=== PATIENT | male | born 1955 | race Caucasian/White ===

== ENCOUNTER 2019-09-08 08:44 | Outpatient (CLI) | payer MEDICARE, OTHER, SELFPAY ==
--- NOTE | 2019-09-08 09:15 | ECG_ITS ---
Measurements Intervals [place] Rate: 93 P: 87 MI: 135 QRS: 83 QRSD: 90 T: 84 QT: 331 QTc: 413 Interpretive Statements SINUS RHYTHM DELAYED PRECORDIAL R/S TRANSITION BASELINE ARTIFACT- I, II, III BORDERLINE ECG Electronically Signed On 09-08-2019 11:23:03 CDT by Yared Carrasquillo D.O.
== END 2019-09-08 08:45 | disposition home or self-care (01) ==
PROVIDERS: PCP Internal Medicine; Visit Provider Internal Medicine
DX: R06.00 Dyspnea, unspecified (principal); J44.9 Chronic obstructive pulmonary disease, unspecified
CPT/HCPCS: 93005; 94060; 94726; 94729

== ENCOUNTER 2019-09-10 07:49 | Outpatient (CLI) | payer MEDICARE, SELFPAY ==
--- NOTE | ~2019-09-10 | XR_ITS ---
EXAMINATION: XR chest 2V DATE: 09/10/2019 08:41 INDICATION: Tobacco dependence TECHNIQUE: PA and lateral views of the chest are obtained. COMPARISON: None available FINDINGS: The lungs are hyperinflated but free of acute opacities. There is no pleural effusion or pn eumothorax. The cardiomediastinal silhouette is normal. There is mild thoracic spondylosis. IMPRESSION: 1. No acute cardiopulmonary abnormality. Reviewed, dictated and finalized at location A.
--- NOTE | ~2019-09-10 | US_ITS ---
EXAMINATION: US aorta DATE: 09/10/2019 08:41 INDICATION: Abdominal aortic aneurysm screening. TECHNIQUE: Grayscale, color Doppler, and pulsed Doppler images of the aorta and common iliac arteries were obtained. COMPARISON: None. FINDINGS: The aorta is normal in caliber and demonstrates atherosclerosis. The right common iliac artery measur es 1.2 cm. The left common iliac artery measures 1.1 cm. IMPRESSION: 1. Aortic atherosclerosis. No aneurysm. Reviewed, dictated and finalized at location A.
--- NOTE | ~2019-09-10 | CT_ITS ---
EXAMINATION: CT lung screening DATE: 09/10/2019 08:42 INDICATION: Personal history of tobacco dependence, current smoker with 48 pack year history TECHNIQUE: Computed tomography (CT) of the chest was performed without intravenous contrast. The dose -length product (DLP) was 77.65 mGy-cm. Automated exposure control and iterative reconstruction techn RRsatue were employed. COMPARISON: None FINDINGS: There is moderate emphysema. There is a 3 mm nodule of the right lower lobe on image 90. Th ere is a 2 mm nodule of the left lower lobe on image 100. There is a 6 mm nodule of the left lower lo be on image 110. There is a 4 mm nodule of the left lower lobe on image 118. The lungs are free of fo jenifer airspace opacities. There is no pleural effusion or pneumothorax. No pathologically enlarged thor acic lymph nodes are identified. The heart size is normal. Calcified coronary artery atherosclerosis is noted. There is mild thoracic spondylosis. IMPRESSION: 1. Lung-RADS category 3: Probably benign. Followup with noncontrast low-dose chest CT in 6 months is recommended. Reviewed, dictated and finalized at location A. IMPRESSION: 1. Lung-RADS category 3: Probably benign. Followup with noncontrast low-dose ch est CT in 6 months is recommended.
== END 2019-09-10 07:50 | disposition home or self-care (01) ==
PROVIDERS: PCP Internal Medicine; Visit Provider Internal Medicine
DX: Z12.2 Encounter for screening for malignant neoplasm of respiratory organs (principal); Z87.891 Personal history of nicotine dependence; R09.89 Other specified symptoms and signs involving the circulatory and respiratory systems; I73.9 Peripheral vascular disease, unspecified
CPT/HCPCS: 71046; 76775; G0297

== ENCOUNTER 2019-09-14 08:00 | Outpatient (CLI) | payer MEDICARE, SELFPAY ==
--- NOTE | ~2019-09-14 | US_ITS ---
EXAMINATION: US arterial ankle brachial ind EXAM DATE: 09/14/2019 08:48 INDICATION: Peripheral arterial disease. TECHNIQUE: Segmental pressures and plethysmographic and Doppler waveforms of the brachial and lower e xtremity arteries were obtained. There is no prior study for comparison. FINDINGS: Right and left brachial artery pressures of 154 mm Hg and 152 mm Hg, respectively, are concordant (no rmal difference <= 30 mmHg). RIGHT LEG: The ankle-brachial index (AL) is 1.08 (normal >= 0.9-1). The great toe-brachial index (TBI) is 0.50 (normal >= 0.65). The lower extremity ratios, segmental pressure gradients as follows; Dorsalis pedis: 1.08 (166 mmHg). Posterior tibial: 1.03 (158 mmHg). (Normal gradients <= 20-30 mmHg between adjacent levels on the same leg or the same levels on the two legs). Arterial waveforms are biphasic. LEFT LEG: The ankle-brachial index (AL) is 1.00 (normal >= 0.9-1). The great toe-brachial index (TBI) is 0.50 (normal >= 0.65). The lower extremity ratios, segmental pressure gradients as follows; Dorsalis pedis: 1.00 (154 mmHg). Posterior tibial: 0.99 (152 mmHg). (Normal gradients <= 20-30 mmHg between adjacent levels on the same leg or the same levels on the two legs). Arterial waveforms are biphasic. IMPRESSION: 1. Right ankle-brachial index 1.08, normal. 2. Left ankle-brachial index 1.00, normal. 3. Segmental pressures as above. Reviewed, dictated and finalized at location A.
--- NOTE | ~2019-09-14 | US_ITS ---
EXAMINATION: US carotid duplex BI DATE: 09/14/2019 08:48 INDICATION: Carotid bruit. TECHNIQUE: Grayscale, color Doppler, and pulsed Doppler images of the cervical carotid arteries were obtained. The degree of vessel stenosis is placed in one of the following categories: normal, <50%, 5 0-69%, >=70% but less than near-occlusion, near-occlusion, or total occlusion. Note that percent sten osis relative to normal distal artery lumen diameter is indirectly measured from velocity measurement s as described by Eleno, et al. Radiology 2003; [id number]:340-346. COMPARISON: None. FINDINGS: RIGHT: The right common carotid artery (CCA) peak systolic velocity (PSV) is 91 cm/s. The right internal car otid artery (ICA) PSV is 92 cm/s. The right ICA end-diastolic velocity (EDV) is 31 cm/s. The right IC A/CCA PSV ratio is 1.0. Grayscale and color Doppler images yield an estimate of <50% diameter reducti on from plaque in the ICA. There is antegrade flow in the right vertebral artery. LEFT: The left CCA PSV is 92 cm/s. The left ICA PSV is 51 cm/s. The left ICA EDV is 16 cm/s. The left ICA/C CA PSV ratio is 0.6. Grayscale and color Doppler images yield an estimate of <50% diameter reduction from plaque in the ICA. There is antegrade flow in the left vertebral artery. IMPRESSION: 1. <50% stenosis in the right internal carotid artery. 2. <50% stenosis in the left internal carotid artery. Reviewed, dictated and finalized at location A.
== END 2019-09-14 08:01 | disposition home or self-care (01) ==
LOC: CHSIMG 08:02
PROVIDERS: PCP Internal Medicine; Visit Provider Internal Medicine
DX: R09.89 Other specified symptoms and signs involving the circulatory and respiratory systems (principal); I73.9 Peripheral vascular disease, unspecified; F17.200 Nicotine dependence, unspecified, uncomplicated
CPT/HCPCS: 93880; 93922

== ENCOUNTER 2020-03-07 10:45 | Outpatient (CLI) | payer MEDICARE, OTHER, SELFPAY ==
--- NOTE | ~2020-03-07 | CT_ITS ---
EXAMINATION: CT chest wo con DATE: 03/07/2020 11:26 INDICATION: Pulmonary Nodule 6mo F/U pulmonary nodule, no chest complaints TECHNIQUE: Computed tomography (CT) of the chest was performed without intravenous contrast. Addition al 3D reconstructions utilizing coronal maximum intensity projection (MIP) were performed. Automated exposure control and iterative reconstruction technique were employed. The dose-length product was 88 .17 mGy-cm. COMPARISON: 09/10/2019 FINDINGS: Moderate emphysema. No interval change in a 4 mm and 6 mm nodules in the left lower lobe. Also withou t interval change are peripheral reticular opacities with multiple tiny nodules with tree-in-bud araceli yarelis at the periphery of the bilateral lower lobes, right greater than left which are likely infectiou s/inflammatory in etiology. No other 4 mm or larger pulmonary nodules identified. No pulmonary edema or pleural effusion. Heart size is normal. No pericardial effusion. Atherosclerotic coronary artery c alcifications. Thoracic aorta is normal in caliber. No pathologically enlarged thoracic lymphadenopat hy. Mild thoracic and moderate upper lumbar spondylosis. IMPRESSION: 1. Lung-RADS category 3: Probably benign. No interval change in 6 month follow-up with no new lesions identified. Recommend additional 18-24 month follow-up low-dose noncontrast chest CT would be recomm ended. Reviewed, dictated and finalized at location A. ATOLOGIST IMPRESSION: 1. Lung-RADS category 3: Probably benign. No interval change in 6 month follow- up with no new lesions identified. Recommend additional 18-24 month follow-up l ow-dose noncontrast chest CT would be recommended.
== END 2020-03-07 10:46 | disposition home or self-care (01) ==
LOC: CHSIMG 10:47
PROVIDERS: PCP Internal Medicine; Visit Provider Internal Medicine
DX: R91.1 Solitary pulmonary nodule (principal)
CPT/HCPCS: 71250

== ENCOUNTER → 2020-05-09 02:59 | Outpatient (CLI) | payer MEDICARE, OTHER, SELFPAY ==
[2020-05-09 18:08] LABS: SARS-CoV-2 RNA PCR Negative
== END ==
PROVIDERS: PCP Internal Medicine; Visit Provider Internal Medicine Gastroenterology
DX: Z01.812 Encounter for preprocedural laboratory examination (principal); Z20.822 Contact with and (suspected) exposure to COVID-19
CPT/HCPCS: C9803; U0003; U0005

== ENCOUNTER 2020-05-12 01:09 | Day surgery (SDC) | payer MEDICARE, OTHER, SELFPAY ==
[2020-05-01 11:22] VITALS: BMI 21.8
[2020-05-12 12:13] VITALS: BP 150/81; PULSE 94; RESP 16; TEMP 36.6; O2SAT 100
[2020-05-12] MEDS: LACTATED RINGERS 1,000 ML 150 ML IV CONT (12:28)
--- NOTE | 2020-05-12 12:49 | WPDANESEPPF ---
Anes - Initial Pre Proc Eval Procedure: Operation Date: 05/12/20 13:00 Proposed Procedures p Screening Colonoscopy - Liam Liu MD Date/Time: 05/12/20 12:49 Surgeon: Liam Liu MD Pre Op Diagnosis: neoplasm screening Patient Data Age: 64 Gender: M Height: 6 ft 1 in Weight: 65.3 kg Last Vital Signs Temp 97.8 F 05/12/20 12:13 Pulse 94 05/12/20 12:13 Resp 16 05/12/20 12:13 BP 150/81 H 05/12/20 12:13 Pulse Ox 100 05/12/20 12:13 Allergies Allergy/AdvReac Type Severity Reaction Status Date / Time No Known Allergies Allergy Verified 05/12/20 12:10 Home Medications Medication Instructions Recorded Confirmed Type sodium,potassium,mag sulfates 17.5 See Rx Instructions PO .COMPLEX 04/17/20 05/12/20 Rx gram-3.13 gram-1.6 gram oral soln #354 ml fluticasone propion-salmeterol 1 ea INHALATION BID 05/01/20 05/12/20 History [Wixela Inhub] fluticasone propionate 1 spray INTRANASAL DAILY 05/01/20 05/12/20 History ipratropium bromide 1 spray INTRANASAL DAILY 05/01/20 05/12/20 History umeclidinium [Incruse Ellipta] 1 inh INHALATION DAILY 05/01/20 05/12/20 History Patient hx anesthesia problems: none Family hx anesthesia problems: none [facility] Family History Family History (Updated 04/10/17 @ 00:00 by CONVUSER A) Father Family history of chronic obstructive pulmonary disease Hypertension Mother Family history of renal failure Acute myocardial infarction Social History Social History Smoking packs per day: 0.5 Smoking cigarettes per day: 10.0 Years smoked: 45 Smoking pack-years: 22.50 Smoking status: Current every day smoker Tobacco type: cigarettes Alcohol intake: current Drinks per week: 30 Substance use: never Substance use type: does not use Living arrangements: with family Spiritual care concerns: No Anes - Eval Final PreProcedure Day of Procedure 05/12/20 12:49 Patient weight: normal Heart: regular rate and rhythm Lungs: clear to auscultation Airway: Mallampati scale class II Neurological: alert and oriented Last oral intake: >/= 8 hours ASA classification: III Emergent: no Anesthetic plan: proceed Anesthesia type and monitoring: general GIVS and standard monitoring Informed Consent: The patient's anesthetic plan and its attendant risks and benefits were discussed with the patient/family/POA. Questions were solicited and answers provided to the satisfaction of the patient/family/POA.
--- NOTE | 2020-05-12 13:18 | PM.HPGS ---
History of Present Illness History of Present Illness Consent: Risks, benefits, and alternatives have been discussed and questions answered. Patient agrees to proceed with procedure. Chief complaint: neoplasm screening Narrative: Manuel Ravi is a 64 year old male here for first screening colonoscopy Review of Systems Constitutional: Constitutional: Denies headache(s) and Denies weakness Eyes: Eyes: Denies blurry vision ENT: Reports Normal hearing present, Denies headache(s) and Denies neck pain Cardiovascular: Cardiovascular: Denies chest pain and Denies dyspnea Respiratory: Respiratory: Denies dyspnea Gastrointestinal: Gastrointestinal: Reports no additional gastrointestinal complaints Genitourinary: Genitourinary: Denies dysuria Musculoskeletal: Musculoskeletal: Denies neck pain Integumentary/Breasts: Skin/Breast: Denies dry skin Neurologic: Reports Normal hearing present, Denies headache(s) and Denies weakness Psychiatric: Psychiatric: Denies anxiety Endocrine: Endocrine: Denies change in body appearance Hematologic/Lymphatic: Hematologic/Lymphatic: Denies easy bleeding Allergic/Immunologic: Allergic/Immunologic: Denies urticaria PMF Past Medical History Medical History (Updated 05/12/20 @ 13:19 by Liam Liu MD) Colon cancer screening Family History Family History (Updated 04/10/17 @ 00:00 by CONVUSER A) Father Family history of chronic obstructive pulmonary disease Hypertension Mother Family history of renal failure Acute myocardial infarction Social History Social History Smoking packs per day: 0.5 Smoking cigarettes per day: 10.0 Years smoked: 45 Smoking pack-years: 22.50 Smoking status: Current every day smoker Tobacco type: cigarettes Alcohol intake: current Drinks per week: 30 Substance use: never Substance use type: does not use Living arrangements: with family Spiritual care concerns: No Meds Home Medications and Allergies Home Medications Medication Instructions Recorded Confirmed Type sodium,potassium,mag sulfates 17.5 See Rx Instructions PO .COMPLEX 04/17/20 05/12/20 Rx gram-3.13 gram-1.6 gram oral soln #354 ml fluticasone propion-salmeterol 1 ea INHALATION BID 05/01/20 05/12/20 History [Wixela Inhub] fluticasone propionate 1 spray INTRANASAL DAILY 05/01/20 05/12/20 History ipratropium bromide 1 spray INTRANASAL DAILY 05/01/20 05/12/20 History umeclidinium [Incruse Ellipta] 1 inh INHALATION DAILY 05/01/20 05/12/20 History Allergies Allergy/AdvReac Type Severity Reaction Status Date / Time No Known Allergies Allergy Verified 05/12/20 12:10 Vital Signs Vital Signs - 24 hr 05/12/20 12:13 Temperature 97.8 F Pulse Rate 94 Respiratory Rate 16 Blood Pressure 150/81 H Pulse Oximetry 100 Exam Const: General: comfortable and no acute distress HENMT: General nose exam: Normal nares present Eyes: General: appearance normal, both eyes and all related structures Neck: Neck: no JVD Resp: Auscultation: clear to auscultation bilaterally Cardio: Rate: regular rate Rhythm: regular rhythm GI: Inspection: non-distended GI Palp: Yes Soft to palpation Skin: General skin exam: normal color Neuro: General: gait normal Speech: normal speech Extrem: General: normal to inspection Psych: Mental Status: mental status grossly normal Assessment and Plan Assessment and plan (1) Colon cancer screening: Code(s): Z12.11 - Encounter for screening for malignant neoplasm of colon Status: Acute Assessment and Plan: proceed with colonoscopy
[2020-05-12 13:38] VITALS: BP 127/77; PULSE 95; RESP 23; O2SAT 99
[2020-05-12 13:48] VITALS: BP 133/87; PULSE 89; RESP 22; O2SAT 98
[2020-05-12 13:58] VITALS: BP 144/95; PULSE 86; RESP 20; O2SAT 99
== END 2020-05-12 14:11 | disposition home or self-care (01) ==
PROVIDERS: PCP Internal Medicine; Visit Provider Internal Medicine Gastroenterology
PROC: 0DJD8ZZ Inspection of Lower Intestinal Tract, Via Natural or Artificial Opening Endoscopic (ICD-10-PCS; CPT 45378; principal; 2020-05-12 13:00)
DX: Z12.11 Encounter for screening for malignant neoplasm of colon (principal); D12.2 Benign neoplasm of ascending colon; K57.30 Diverticulosis of large intestine without perforation or abscess without bleeding; K64.8 Other hemorrhoids; F17.210 Nicotine dependence, cigarettes, uncomplicated
CPT/HCPCS: 45385; 88305; J2704; J7120

== ENCOUNTER 2021-03-30 09:47 | Outpatient (CLI) | payer MEDICARE, OTHER, SELFPAY ==
--- NOTE | ~2021-03-30 | CT_ITS ---
EXAMINATION: CT lung screening EXAM DATE: 03/30/2021 10:03 INDICATION: HX tobacco dependence, still smokes, COPD. TECHNIQUE: Spiral low dose CT of the chest without contrast. Axial, coronal and sagittal images were reviewed. The dose-length product (DLP) for this examination was 83.25 mGy-cm. The exposure was ta ilored according to patient size (auto mA exposure control), and iterative reconstruction (ASIR) was used as additional dose reduction technique. Comparison is made to prior examination from 03/07/2020. FINDINGS: Previously seen there is mild to moderate emphysema and hyperinflation. 4 and 6 mm left lo wer lobe nodules are unchanged consistent with granulomas. Tracheobronchial tree is patent. There is no mediastinal, hilar or axillary lymphadenopathy. There are no pleural or pericardial effusions . There is no pneumothorax. Heart normal in size. There is moderate coronary arterial calcifica tion, arterial sclerosis. Upper abdomen is unremarkable. There is mild thoracic spondylosis without osteoblastic or osteolytic lesions identified. IMPRESSION: Lung-RADS category 2, benign appearance or behavior (<1% chance of malignancy); recommend continued LDCT screening in 1 year. Reviewed, dictated and finalized at location B. STRIAL COOK
== END 2021-03-30 09:48 | disposition home or self-care (01) ==
LOC: CHSIMG 09:48
PROVIDERS: PCP Internal Medicine; Visit Provider Internal Medicine
DX: Z12.2 Encounter for screening for malignant neoplasm of respiratory organs (principal); Z87.891 Personal history of nicotine dependence
CPT/HCPCS: 71271

== ENCOUNTER 2022-04-01 09:48 | Outpatient (CLI) | payer MEDICARE, OTHER, SELFPAY ==
--- NOTE | ~2022-04-01 | CT_ITS ---
CT Scan of the Chest without Contrast: Clinical Indication: Current smoker, lung cancer screening, COPD Technique: Contiguous sections were acquired throughout the chest without intravenous contrast. Dose reduction technique was used on this scan by utilizing automated exposure control and iterative recon struction technique. The dose-length product (DLP) was 82.92 mGy-cm. COMPARISON: 03/30/2021 and 09/10/2019 Findings: There is no evidence of any significant mediastinal, hilar or axillary lymphadenopathy. Coronary martha ry calcifications are present. No aortic aneurysm. There is no evidence of pleural or pericardial effusion. Mild subpleural reticulation is present bilaterally. Stable left lower lobe 4 mm pulmonary nodule (ax ial image 117). Stable additional 5 mm left lower lobe pulmonary nodule (axial image 109). Images through the upper abdomen reveal no abnormalities. Impression: Lung-RADS 2: Benign appearance. 12 month follow-up screening CT advised. Suspected early/mild chronic interstitial pulmonary disease. Reviewed, dictated and finalized at location . IFIED MEDICAL TECHNICIAN Impression: Lung-RADS 2: Benign appearance. 12 month follow-up screening CT advised. Suspected early/mild chronic interstitial pulmonary disease.
== END 2022-04-01 09:49 | disposition home or self-care (01) ==
LOC: CHSIMG 09:49
PROVIDERS: PCP Internal Medicine; Visit Provider Internal Medicine
DX: Z12.2 Encounter for screening for malignant neoplasm of respiratory organs (principal); R91.8 Other nonspecific abnormal finding of lung field; Z87.891 Personal history of nicotine dependence
CPT/HCPCS: 71271

== ENCOUNTER 2023-03-07 08:23 | Outpatient (CLI) | payer MEDICARE, OTHER, SELFPAY ==
--- NOTE | ~2023-03-07 | CT_ITS ---
EXAMINATION: CT chest abdomen pelvis w con DATE: 03/07/2023 09:26 INDICATION: Cough. Unexpected weight loss. COPD. TECHNIQUE: Computed tomography (CT) of the chest, abdomen, and pelvis was performed with 100 CC Omnip aque 350 intravenous contrast. Automated exposure control and iterative reconstruction technique were employed. Exam dose: 335.46 mGy-cm total exam DLP. COMPARISON: April 01, 2022 CT lung screening FINDINGS: CHEST CT: Normal size and homogeneous enhancement of the thyroid gland. No hilar or mediastinal mass lesion or lymphadenopathy. No thoracic aortic aneurysm or dissection. Normal heart size. Coronary artery calcification. No peric ardial or pleural effusion. Emphysematous changes of the lungs. Left lower lobe probable calcified pulmonary granuloma. No pulmon tae infiltrate or consolidation or suspicious pulmonary mass lesion is detected. There is mild depend ent right lower lobe atelectasis and/or fibrotic change. ABDOMEN/PELVIS CT: There is hepatic steatosis. The liver, gallbladder, bile ducts, spleen, pancreas, pancreatic duct, an d adrenal glands and kidneys are otherwise unremarkable. No urinary tract calculus or hydroureteronep hrosis. There is atherosclerotic calcification but normal caliber of the abdominal aorta. There is prominent calcification at the origin of the celiac and superior mesenteric arteries. No intraperitoneal or retroperitoneal or pelvic mass lesion or adenopathy or ascites. Small sliding hiatal hernia. Normal appendix. Diverticulosis of the sigmoid colon; no CT evidence of diverticulitis. No bowel obstruction, bowel wa ll thickening, pneumatosis or intraperitoneal free air. The urinary bladder and prostate gland are unremarkable. Small fat-containing umbilical hernia. No suspicious osteolytic or osteoblastic lesions. There is prominent degenerative disc disease of the lower cervical spine. Mild degenerative spurring of the thoracic spine. Multilevel degenerative disc disease of the lumbar spine including moderately severe degenerative disc disease at L1-2, L4-5 and L5-S1, with prominent posterior bulging or herniat ed disc material at L4-5 in particular. IMPRESSION: Emphysema Hepatic steatosis Small sliding hiatal hernia Normal appendix Diverticulosis of sigmoid colon Reviewed, dictated and finalized at Location A. Reviewed, dictated and finalized at location B. K PLACER
[2023-03-07 08:51] LABS: Estimated Glomerular Filt Rate > 60
== END 2023-03-07 08:24 | disposition home or self-care (01) ==
LOC: CHSIMG 08:26
PROVIDERS: PCP Internal Medicine; Visit Provider Internal Medicine
DX: J44.9 Chronic obstructive pulmonary disease, unspecified (principal); R63.4 Abnormal weight loss; K76.0 Fatty (change of) liver, not elsewhere classified; K44.9 Diaphragmatic hernia without obstruction or gangrene; K57.30 Diverticulosis of large intestine without perforation or abscess without bleeding
CPT/HCPCS: 71260; 74177; Q9967

== ENCOUNTER 2023-04-21 12:44 | Outpatient (CLI) | payer MEDICARE, SELFPAY ==
[2023-04-21 12:59] LABS: Basophils Absolute Auto 0.04 K/mm3 (0.00-0.10); Basophils Percent Auto 0.3 % (0.0-1.0); Eosinophils Absolute Auto 0.02 K/mm3 (0.02-0.50); Eosinophils Percent Auto 0.1 % (1.0-6.0); Hematocrit 54.2 % (37.0-46.0); Hemoglobin 18.2 g/dL (12.4-15.3); Immature Granulocyte Absolute 0.04 K/mm3 (0.00-0.00); Immature Granulocyte Percent A 0.3 % (0.0-0.0); Lymphocytes Absolute Auto 2.32 K/mm3 (1.10-4.50); Lymphocytes Percent Auto 15.3 % (18.0-42.0); Mean Corpuscular HGB Conc 33.6 g/dL (32.0-36.0); Mean Corpuscular Hemoglobin 30.2 pg (27.0-31.0); Mean Corpuscular Volume 89.9 fL (78.0-102.0); Mean Platelet Volume 9.3 fl (8.7-11.0); Monocytes Absolute Auto 1.33 K/mm3 (0.10-0.90); Monocytes Percent Auto 8.8 % (2.0-11.0); Neutrophils Absolute Auto 11.4 K/mm3 (1.7-7.2); Neutrophils Percent Auto 75.2 % (50.0-70.0); Platelet Count Result 225 K/mm3 (150-420); Red Blood Count 6.03 M/mm3 (4.70-6.10); Red Cell Distribution Width 14.5 % (11.6-14.4); White Blood Count 15.2 K/mm3 (4.8-10.8)
[2023-04-21 13:47] LABS: Ferritin 184 ng/mL (26-388); Iron 25 ug/dL (65-175)
== END 2023-04-21 12:45 | disposition home or self-care (01) ==
LOC: CHSLAB 12:47
PROVIDERS: PCP Internal Medicine; Visit Provider Internal Medicine
DX: D64.9 Anemia, unspecified (principal); D75.1 Secondary polycythemia
CPT/HCPCS: 36415; 82728; 83540; 85025

== ENCOUNTER 2023-04-23 15:54 | Outpatient (CLI) | payer MEDICARE, OTHER, SELFPAY ==
--- NOTE | ~2023-04-23 | XR_ITS ---
EXAMINATION: XR chest 2V DATE: 04/23/2023 16:27 INDICATION: COPD presenting with fever and dyspnea TECHNIQUE: frontal and lateral views of the chest were obtained. COMPARISON: Chest CT dated 03/07/2023 , 04/01/2022, 03/30/2021 and 03/07/2020 FINDINGS: Hyperexpansion of lungs with increased retrosternal clear space, flattening of the diaphragm on the l ateral projection and increased lucency and some architectural distortion in the upper lung zones con sistent with emphysema better appreciated on prior CT. Subtle opacities at the right costophrenic ang le corresponding to region of subpleural reticulation in the right lower lobe on the prior CT studies consistent with chronic interstitial lung disease. No new airspace opacities, pulmonary edema, pleur al effusion or pneumothorax. The cardiomediastinal silhouette is normal with small right paracardial fat pad. Mild thoracic spondylosis. IMPRESSION: 1. Emphysema with subtle opacities at the right costophrenic angle which appears to correspond to chr onic interstitial lung disease on the prior CT imaging dating back 3 years. Reviewed, dictated and finalized at location A. [employer]ET[employer] IMPRESSION: 1. Emphysema with subtle opacities at the right costophrenic angle which appear s to correspond to chronic interstitial lung disease on the prior CT imaging da ting back 3 years.
[2023-04-23 16:26] LABS: Basophils Absolute Auto 0.04 K/mm3 (0.00-0.10); Basophils Percent Auto 0.3 % (0.0-1.0); Eosinophils Percent Auto 0.7 % (1.0-6.0); Hematocrit 51.1 % (37.0-46.0); Hemoglobin 17.7 g/dL (12.4-15.3); Immature Granulocyte Absolute 0.12 K/mm3 (0.00-0.00); Immature Granulocyte Percent A 0.8 % (0.0-0.0); Lymphocytes Absolute Auto 1.51 K/mm3 (1.10-4.50); Lymphocytes Percent Auto 10.6 % (18.0-42.0); Mean Corpuscular HGB Conc 34.6 g/dL (32.0-36.0); Mean Corpuscular Hemoglobin 30.8 pg (27.0-31.0); Mean Platelet Volume 9.2 fl (8.7-11.0); Monocytes Percent Auto 11.2 % (2.0-11.0); Neutrophils Absolute Auto 10.9 K/mm3 (1.7-7.2); Neutrophils Percent Auto 76.4 % (50.0-70.0); Platelet Count Result 299 K/mm3 (150-420); Red Blood Count 5.74 M/mm3 (4.70-6.10); Red Cell Distribution Width 14.2 % (11.6-14.4); White Blood Count 14.3 K/mm3 (4.8-10.8)
[2023-04-23 16:49] LABS: D Dimer 0.35 mg/L (0.19-0.50)
[2023-04-23 17:02] LABS: Alanine Aminotransferase 20 U/L (16-63); Albumin Level 3.1 g/dL (3.4-5.0); Alkaline Phosphatase 82 U/L (46-116); Anion Gap 9 mmol/L (8-16); Aspartate Amino Transferase 13 U/L (15-37); Bilirubin,Total 1.5 mg/dL (0.00-1.00); Blood Urea Nitrogen 8 mg/dL (7-18); Calcium 9.1 mg/dL (8.5-10.1); Carbon Dioxide 30 mmol/L (21-32); Chloride 91 mmol/L (98-108); Estimated Glomerular Filt Rate > 60; Glucose 129 mg/dL (70-99); NT Pro B Type Natriuretic Pept 335 pg/mL (0-125); Osmolality Calculated 270 mOsm/kg (285-295); Potassium 3.7 mmol/L (3.5-5.1); Sodium 130 mmol/L (136-145); Total Protein 7.8 g/dL (6.4-8.2)
[2023-04-28 11:19] LABS: Vitamin B1 9 nmol/L (8-30)
== END 2023-04-23 15:55 | disposition home or self-care (01) ==
PROVIDERS: PCP Internal Medicine; Visit Provider Internal Medicine
DX: R50.9 Fever, unspecified (principal); R06.00 Dyspnea, unspecified; J44.9 Chronic obstructive pulmonary disease, unspecified; E51.9 Thiamine deficiency, unspecified; E46 Unspecified protein-calorie malnutrition; N41.9 Inflammatory disease of prostate, unspecified
CPT/HCPCS: 36415; 71046; 80053; 83880; 84153; 84425; 85025; 85380; 87040

== ENCOUNTER 2023-04-24 11:44 | Outpatient (CLI) | payer MEDICARE, SELFPAY ==
[2023-04-24 11:59] LABS: Appearance Urine Clear (Clear); Bilirubin Urine 1+ (Negative); Blood Urine Negative (Negative); Glucose Urine UA Negative (Negative); Ketones Urine 1+ (Negative); Leukocyte Esterase Ur Negative (Negative); Nitrate Urine Negative (Negative); Protein Urine Trace (Negative); Urobilinogen Urine 0.2 mg/dL (0.2-1.0)
[2023-04-24 12:11] LABS: Add Urine Microscopic? YES; Bacteria Urine Trace /hpf; Color Urine Light Amber (Yellow); Mucus Urine Moderate /lpf; RBC Urine None seen /hpf (0-2); WBC Urine None seen /hpf (0-3)
== END 2023-04-24 11:45 | disposition home or self-care (01) ==
LOC: CHSLAB 11:47
PROVIDERS: PCP Internal Medicine; Visit Provider Internal Medicine
DX: J44.9 Chronic obstructive pulmonary disease, unspecified (principal); R06.00 Dyspnea, unspecified; R50.9 Fever, unspecified
CPT/HCPCS: 81001; 87086

== ENCOUNTER 2024-06-11 13:21 | Outpatient (CLI) | payer MEDICARE, OTHER, SELFPAY ==
--- NOTE | ~2024-06-11 | CT_ITS ---
CT Scan of the Chest without Contrast: Clinical Indication: Lung cancer screening, nicotine dependence Technique: Contiguous sections were acquired throughout the chest without intravenous contrast. Dose reduction technique was used on this scan by utilizing automated exposure control and iterative recon struction technique. The dose-length product (DLP) was 77.49 mGy-cm. COMPARISON: 03/07/2023 Findings: There is no evidence of any significant mediastinal, hilar or axillary lymphadenopathy. Coronary martha ry calcification present. There is no evidence of pleural or pericardial effusion. There is moderate emphysema. Subcentimeter peripheral left lower lobe pulmonary nodules are similar t o prior exam. There are minimal chronic interstitial changes in the right lower lobe. Images through the upper abdomen reveal no abnormalities. Impression: Lung RADS 2: Benign appearance. 12 month follow-up screening CT advised. Reviewed, dictated and finalized at [facility]. Impression: Lung RADS 2: Benign appearance. 12 month follow-up screening CT advised.
--- OUTSIDE RECORDS SUMMARY | 2024-06-11 13:28 | XMS_ITS | Clinical Summary ---
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 Name Role Phone Unavailable Primary Care Provider Unavailabl e Social History Tobacco Use Types Packs/Day Years Used Date Smoking Tobacco: Never Assessed Sex and Gender Information Value Date Recorded Sex Assigned at Not on file Legal Sex Male 5:55 PM RN RESIDENTIAL Gender Identity Not on file Sexual Orientation Not on file Plan of Treatment Health Maintenance Due Date Last Done Comments Colorectal Cancer Screening Colonoscopy (10 Years) 1955 Hepatitis C 05/24/1971 DTaP, Tdap and Td Vaccines ( 1 - Tdap) 1972 Pneumococcal Vaccine: 50+ Ye ars (1 of 1 - PCV) 05/24/2003 Zoster Vaccines (1 of 2) 05/24/2003 COVID-19 Vaccine ( - 2023-2 5 season) 2023 RSV Immunization or 60+ Years (1 - 1-dose 75+ series) 2028 Meningococcal B Vaccine Aged Out No l onger eligible based on patient's age to complete this topic Meningococcal Vaccine Aged Out No bridgett jose eligible based on patient's age to complete this topic RSV Immunizations Under 20 Months Aged Out No longer eligible based on patient's age to complete this topic
--- OUTSIDE RECORDS SUMMARY | 2024-06-11 13:28 | XMS_ITS | Clinical Summary ---
Author Organization [facility] Address [address] [place] [address] Care Team Providers Care Transition Assistant Name Role Phone Unavailable Primary Care Provider Unavailabl e Source Comments [facility],non-owned Affiliates and Associated Physician Practices is amultiple site organization consisting of ambulatory clinics and hospital sitesin [place], [place], [place] and [place]. This disclosure is being madepursuant to the Care Everywhere program and may not contain all information available regarding this patient. Last updated 17.[facility] Allergies No known active allergies Medications * Be aware that medications may not be up to date on this document. Alwaysverify current medications with the patient. No known medications Social History Tobacco Use Types Packs/Day Years Used Date Smoking Tobacco: Every Day Smokeless Tobacco: Never Sex and Gender Information Value Date Recorded Sex Assigned at Not on file Legal Sex Male 1:22 PM [employer]AGE [employer] Gender Identity Not on file Sexual Orientation Not on file Last Filed Vital Signs Vital Sign Reading Time Taken Comments Blood Pressure 142/86 03/04/2017 2:18 PM STAGE RIGGER Pulse 80 03/04/2017 2:18 PM STAGE RIGGER Temperature 36.7 C (98 F) 03/04/2017 2:18 PM STAGE RIGGER Respiratory Rate 16 03/04/2017 2:18 PM STAGE RIGGER Oxygen Saturation 98% 03/04/2017 2:18 PM STAGE RIGGER Inhaled Oxygen Concentration - - Weight 79.4 kg (175 lb) 03/04/2017 2:18 PM STAGE RIGGER Height 188 cm (6' 2 ) 03/04/2017 2:18 PM STAGE RIGGER Body Mass Index 22.47 03/04/2017 2:18 PM STAGE RIGGER Plan of Treatment Health Maintenance Due Date Last Done Comments KARLA (AGES 45-75) - COL ON CA SCREENING 1955 COLON MONITORING 1953 COLONOSCOPY - COLON CA SCREENING 1953 CT COLONOGRAPHY - COLON CA SCREENING 1953 Colorectal Cancer Screening 1953 FIT - COLON CA SCREENING 1953 FLEX SIG - COLON CA SCREENING 1953 LIPID TESTING 1953 MEDICARE AWV 12 MONTHS 1953 HEPATITIS C SCREENING 05/19/1971 DTAP/TDAP/TD VACCINES (1 - Tdap) 1972 PNEUMOCOCCAL VACCINE 50+ (1 of 2 - PCV) 1972 ZOSTER VACCINE (1 of 2) 05/24/2003 AAA SCREENING 2018 COVID-19 VACCINE ( - 2023-2 5 season) 2023 DEPRESSION SCREENING 02/18/2024 INFLUENZA VACCINE (Season Ended) 2024 Respiratory Syncytial Virus (RSV) Vaccine Pt: or over 60 yrs (1 - 1-dose 75+ series) 2028 HEPATITIS B VACCINE Aged Out No longe r eligible based on patient's age to complete this topic HIB VACCINE Aged Out No longer eligi ble based on patient's age to complete this topic HPV VACCINE Aged Out No longer eligi ble based on patient's age to complete this topic MENINGOCOCCAL (Group B) VACC INE SHARED DECISION-MAKING Aged Out No longer eligibl e based on patient's age to complete this topic MENINGOCOCCAL GROUPS A/C/Y/W VACCINE Aged Out No longer eligible b ased on patient's age to complete this topic Insurance [facility] MEDICARE SELF PAY NO INSURANCE Member Subscriber Plan / Payer (Ef fective for All Dates) Name:HarmanSterling freemankomal Myers Member ID:Not on file Relation to Subscriber:Not on file Name:MANUEL AGGARWAL Subscriber ID:Not on file (Home) Address: [address] [place] [address] Payer ID:Not on file Group ID:Not on file Type:Self Pay Address: [place], [place] MEDICARE SELF PAY NO INSURANCE Member Subscriber Plan / Payer (Ef fective for All Dates) Name:Manuel Aggarwal Member ID:Not on file Relation to Subscriber:Not on file Name:MANUEL AGGARWAL Subscriber ID:Not on file (Home) Address: [address] [place] [address] Payer ID:Not on file Group ID:Not on file Type:Self Pay Address: [place], [place]
== END 2024-06-11 13:22 | disposition home or self-care (01) ==
LOC: CHSIMG 13:23
PROVIDERS: PCP Internal Medicine; Visit Provider Internal Medicine
DX: Z12.2 Encounter for screening for malignant neoplasm of respiratory organs (principal); Z87.891 Personal history of nicotine dependence
CPT/HCPCS: 71271